=== PATIENT | female | born 1990 | race Caucasian/White ===

== ENCOUNTER 2022-05-27 11:55 | Outpatient (CLI) | payer OTHER, SELFPAY ==
--- NOTE | 2022-05-27 12:15 | CRLHL7_ITS ---
For Patients: As a result of the Century Cures Act, medical imaging exams and procedure reports are released immediately into your electronic medical record. You may view this report before your referring provider. If you have questions, please contact your health care provider. INDICATION: First trimester scan, establish dates. COMPARISON: None. TECHNIQUE: Real-time stephens-scale imaging of the pelvis was performed. FINDINGS: Sonographic imaging demonstrates a single living intrauterine gestation. The embryo demonstrates a regular cardiac rate measuring 163 beats per minute. The embryo`s crown-rump length measurement of 1.1 cm corresponds to a gestational age of 7 weeks 1 day with a sonographic due date of 01/12/2023. There is a normal-appearing yolk sac. There are no gross abnormalities noted within the embryo at this early state of development. The gestational sac has a normal appearance. There is no evidence of a perigestational hemorrhage. The amount of fluid within the sac appears appropriate for gestational age. The cervix is closed. The myometrium appears normal. The ovaries are of normal size. Corpus luteal cyst right ovary. There are no suspicious fluid collections noted in the cul-de-sac. IMPRESSION: Normal first trimester OB ultrasound exam. Gestational age calculated at 7 weeks 1 day with a sonographic due date of 01/12/2023. Dictated by Kd Israel MD @ 05/27/2022 12:49:16 PM (Electronically Signed)
== END 2022-05-27 11:56 | disposition home or self-care (01) ==
LOC: US 11:56
PROVIDERS: Visit Provider Advanced Practice Midwife
DX: Z34.91 Encounter for supervision of normal pregnancy, unspecified, first trimester (principal); Z3A.01 Less than 8 weeks gestation of pregnancy
CPT/HCPCS: 76817; 86592; 86703; 86762; 86787; 86803; 86850; 86900; 86901; 87086; 87340

== ENCOUNTER 2022-08-22 13:56 | Outpatient (CLI) | payer OTHER, SELFPAY ==
--- NOTE | 2022-08-22 14:00 | CRLHL7_ITS ---
For Patients: As a result of the Century Cures Act, medical imaging exams and procedure reports are released immediately into your electronic medical record. You may view this report before your referring provider. If you have questions, please contact your health care provider. INDICATION: Evaluate anatomy. COMPARISON: 05/27/2022 TECHNIQUE: Real time stephens scale imaging of the fetus was performed as well as color Doppler analysis of the umbilical vessels. FINDINGS: Sonographic imaging demonstrates a single living intrauterine gestation. Fetus demonstrates a regular cardiac rate of 152 beats per minute. Fetus has a variable position. The placenta lies posteriorly without evidence of placenta previa. The edge of the placenta is located 4.8 cm from the internal cervical os. Amniotic fluid volume appears normal. Single deepest vertical pocket: 3.0 cm. The cervix is closed and measures 3.4 cm in length. The composite ultrasound gestational age is calculated at 19 weeks 6 days with an estimated sonographic due date of 01/10/2023. The estimated weight is 318 grams which lies at the 64th %. The following biometric measurements were obtained: Biparietal diameter: 4.5 cm/19 weeks 5 days 55th% Head circumference: 17.0 cm/19 weeks 4 days 43rd% Abdominal circumference: 14.8 cm/20 weeks 0 days 61st% Femur length: 3.2 cm/19 weeks 6 days 50th% The HC/AC ratio measures: 1.15 range (1.08-1.26) On anatomic survey, there is a normal appearance of the cerebral ventricles, cavum septi pellucidi, cisterna magna and cerebellum. The nose, lips, and facial profile appear normal. The cervical, thoracic and lumbar spine are well visualized and appear normal. There is a normal four-chamber heart view and the left and right ventricular outflow tracts appear normal. The diaphragm and stomach appear normal. The kidneys and bladder also appear normal. There is a normal three-vessel cord and cord insertion site. The four extremities appear normal. IMPRESSION: Normal OB ultrasound exam with concordance of clinical and sonographic dating. No intrinsic abnormalities noted on anatomic survey. Dictated by Kd Israel MD @ 08/23/2022 2:58:29 PM (Electronically Signed)
== END 2022-08-22 13:57 | disposition home or self-care (01) ==
LOC: US 13:56
PROVIDERS: Visit Provider Obstetrics & Gynecology
DX: Z34.92 Encounter for supervision of normal pregnancy, unspecified, second trimester (principal); Z3A.19 19 weeks gestation of pregnancy
CPT/HCPCS: 76805

== ENCOUNTER 2022-10-17 09:45 | Outpatient (CLI) | payer OTHER, SELFPAY | END 2022-10-17 09:46 | disposition home or self-care (01) | PROVIDERS: Visit Provider Obstetrics & Gynecology | DX: Z34.92 Encounter for supervision of normal pregnancy, unspecified, second trimester (principal); Z3A.27 27 weeks gestation of pregnancy | CPT/HCPCS: 86592 ==

== ENCOUNTER 2022-12-15 10:21 | Outpatient (CLI) | payer OTHER, SELFPAY ==
[2022-12-16 13:47] LABS: Strep B DNA Probe POSITIVE (Negative)
[2022-12-16 13:50] LABS: Strep B Pen/Amox Allergy No
== END 2022-12-15 10:22 | disposition home or self-care (01) ==
LOC: NFLDREF 10:58
PROVIDERS: Visit Provider Obstetrics & Gynecology
DX: Z34.93 Encounter for supervision of normal pregnancy, unspecified, third trimester (principal); Z3A.36 36 weeks gestation of pregnancy
CPT/HCPCS: 87081; 87653

== ENCOUNTER 2023-01-05 16:04 | Inpatient (IN) | payer OTHER, SELFPAY ==
[2023-01-05 16:17] VITALS: BP 108/72; PULSE 117; TEMP 36.8
[2023-01-05 16:20] VITALS: BMI 29.6
--- NOTE | 2023-01-05 18:54 | P.LDBA_ITS ---
Subjective History of Present Illness Time Seen by Provider: 18:54 Date Seen: 01/05/23 Narrative: Patient is being admitted to Labor and Delivery for elective IOL. She is a 32 year old at 39w0d gestation. Her full history and physical was dictated by myself earlier today at her clinic visit. Please see this for details. She reports that she has a lingering cough from a cold a few weeks ago. She feels well but notes it gets worse at night. She wanted to mention this as she's afraid her coughing will expel the cook cath. Reassured patient that if cook cath is unable to stay in place due to cough or any other kind of Valsalva, we have the option of cervical ripening with misoprostol as well. Not interval changes since this morning. Active movement. Denies LOF, vaginal bleeding or abnormal vaginal discharge. Minimal contractions. Specific Issues/Plans [id number] Gopi 1. Hx of anxiety Not on medication at this time (zoloft previously well tolerated). Worsening anxiety noted on 11/14, tolerable. Declines talk therapy or medication need at this time. Will reach out with worsening symptoms. 2. Hx of jaundice with both previous children (ABO incompatibility), requiring hospitalization of each for one week followed by daily monitoring Likely to recur Dr. Mcfarland recommends early bilirubin check and early phototherapy 3. Anemia, with Hb 10.9 at 34 weeks. Iron supplementation QOD. 4. Considering salpingectomy. Private insurance. - to get vasectomy - Will only do salpingectomy if CD - confirmed on admission to L&D 5. GBS positive. No antibiotic allergies. Ampicillin in labor. Tdap: Given, 10/31/22 Flu: 12/15/[address] Joseph on 01/05/2023 OB - Problem Based A/P Additional Plan (1) : Status: Acute (2) Anxiety: Problem details: not on medication at this time Status: Acute (3) Anemia affecting : Status: Acute Plan Induction * Will admit due to scheduled elective induction of labor * Cervical ripening with cook cath: Placed at 1815 without complications * Plan for titrating Pitocin at 0000 on 01/06 * Ampicillin for GBS + when starting Pitocin * Pain management plan: debating between * control: If delivery, then desires salpingectomy. If vaginal delivery: vasectomy OB Exam Physical Exam Vital signs: Temp Pulse BP 98.2 F 117 H 108/72 01/05/23 16:17 01/05/23 16:17 01/05/23 16:17 Narrative: Physical exam: General: No acute distress Psych: Alert and oriented x3, full affect HEENT: Normocephalic, atraumatic Lungs: Unlabored breathing Neuro: No focal deficit. Mentating appropriately Pelvic exam: 0.5/50/-3, moderately soft, midposition
[2023-01-05 19:21] VITALS: BP 114/69; PULSE 97
[2023-01-05] MEDS: guaiFENesin 100 MG/ML CUP PO (21:26)
[2023-01-05] MEDS: hydrOXYzine pamoate 25 MG CAPSULE 100 MG PO (23:47)
[2023-01-05] MEDS: MORPHINE 10 MG/ML inj IM (23:47)
[2023-01-05] MEDS: LACTATED RINGERS 1000 ML 1,000 ML 125 ML IV (23:48)
[2023-01-05] MEDS: OXYTOCIN 30 unit/500 ML in NS 30 UNIT/500 ML BAG IVPB (23:49)
[2023-01-06] VITALS (77 sets, daily range): BP systolic 92–140; BP diastolic 50–81; PULSE 60–131; RESP 16; TEMP 36.6–36.9; O2SAT 92–98
[2023-01-06] MEDS: AMPICILLIN 2 GM in 0.9 % SODIUM CHLORIDE Mini-bag 100 ML IVPB (01:02)
[2023-01-06] MEDS: guaiFENesin 100 MG/ML CUP PO ×5 (03:10→22:13)
[2023-01-06] MEDS: AMPICILLIN 1 GM in 0.9 % SODIUM CHLORIDE Mini-bag 100 ML IVPB ×4 (05:30→17:03)
--- NOTE | 2023-01-06 08:59 | PM.OBPNL ---
Subjective Time Seen by Provider: 10:00 Date Seen: 01/06/23 Narrative: Ms. Marinelli is a 32yo admitted for elective IOL. course complicated by gestational anemia, history of anxiety and ABO incompatibility with previous admissions for hyperbilirubinemia. Induction progress has included cook catheter and pitocin. She is s/p her second dose of ampicillin for GBS positive status. Marquita is feeling well this morning. Notes mild discomfort with contractions. No vaginal bleeding or leaking of fluids. Endorses active movement. Objective Exam: EXAM: Vital Signs: as above Abdomen: Gravid. Non-tender. Cervix: 3/50/-2, head well applied to cervix NST: Baseline 135bpm, moderate variability, accelerations present and decelerations absent Experiment: Contractions q4m Pitocin: 10mu/min Vital Signs: Last Vital Signs Temp 98.3 F 01/06/23 07:30 Pulse 111 H 01/06/23 08:30 BP 131/67 01/06/23 08:30 Plan Plan: Ms. Marinelli is a 32yo seen on Labor and Delivery ongoing elective IOL. ANC history of anxiety, gestational anemia and history of ABO incompatibility requiring admission for hyperbilirubinemia. Labor progress has included cook catheter and pitocin. She is now s/p second dose of ampicillin for GBS positivity. Cervix is now 3/50/-2, with head well applied to cervix. Discussed option for continued pitocin titration via FHR and toco data versus amniotomy. She notes rapid change/delivery following AROM in her last delivery, where she favors proceeding. Plan to proceed with epidural placement first per patient preference. Risks of amniotomy including increased pain, FHR changes, infection and cord prolapse reviewed - verbal consent obtained. Plan to return to bedside once she is comfortable with epidural in place for repeat exam and AROM. - Labor management plan as above. - BT O+ - GBS positive, now adequately treated with ampicillin
[2023-01-06] MEDS: LACTATED RINGERS 1000 ML 1,000 ML 125 ML IV ×3 (09:43→18:43)
[2023-01-06] MEDS: ROPIVACAINE 0.2% 100 ml 100 ML 12 MG EPIDURAL ×2 (10:52→18:58)
[2023-01-06] MEDS: LIDOCAINE 2% (PF) 5 ML VIAL EPIDURAL ×2 (10:52→20:30)
[2023-01-06] MEDS: fentaNYL 100 MCG/2 ML inj EPIDURAL (10:55)
--- NOTE | 2023-01-06 11:06 | P.ANBPRC_ITS ---
[facility] Medical History Hx of vaginal delivery Broken nose ?S02.2XXA - Fracture of nasal bones, initial encounter for closed fracture (ICD-10) Surgical History Salix teeth extracted ?K08.409 - Partial loss of teeth, unspecified cause, unspecified class (ICD- 10) Family History Father Asthma Social History Narrative: SOCIAL?? Education: Bachelors?? Work: teach online ?? Partner: Gopi?? Lives with: and two children (3 and 2)?? Pets: 4 dogs, labs?? Abuse: Denies past/present?? Special Diet: Denies?? Ok with a blood transfusion: yes?? Culture or jainism beliefs: denies?? What is your current living situation?: I presently have a place to live Problems where you live: no known problems In the past 12 months, utilities in danger of being shut off: no In past 12 months, lack of transportation kept you from medical appts, meetings, work, or getting things needed for daily living: no In the past 12 mos, have been you worried that your food would run out before you had money to buy more?: never true In the past 12 mos, the food you bought just didn't last and you didn't have money to buy more?: never true Smoking Status: Never smoker How often does anyone, including family, friends and others, physically hurt you : never How often does anyone, including family, friends and others, insult or talk down to you: never How often does anyone, including family, friends and others, threaten you with harm: never How often does anyone, including family, friends and others, scream or curse at you: never Little interest or pleasure in doing things: not at all Feeling down, depressed, or hopeless: several days Meds Home Medications and Allergies Home Medications Medication Instructions Recorded Confirmed Type docosahexaenoic acid 200 mg 200 mg PO DAILY 05/27/22 01/05/23 History capsule ( DHA) Allergies Allergy/AdvReac Type Severity Reaction Status Date / Time No Known Drug Allergies Allergy Verified 01/05/23 16:18 Results Vital Signs Vital Signs: Last Vital Signs Temp 98.3 F 01/06/23 07:30 Pulse 103 H 01/06/23 11:05 BP 107/56 L 01/06/23 11:05 Pulse Ox 96 01/06/23 11:03 Weight: 75.841 kg Height: 160.02 cm Anesthesia Procedures Epidural Insertion Patient Location: OB Start Time: 10:35 Stop Time: 11:05 Start Date: 01/06/23 Stop Date: 01/06/23 Reason for Block: procedure for pain Patient Position: sitting Performed By: Darien Gonzalez Preanesthetic Checklist: IV checked, risks and benefits discussed, monitors and equipment checked, pre-op evaluation, timeout performed and anesthesia consent Prep: chlorhexidine gluconate Monitoring: blood pressure monitoring, continuous pulse oximetry and heart rate Approach: midline Vertebral Space: lumbar (1-5) Epidural Technique: SIDNEY saline Needle Type: Tuohy needle Injection Technique: continuous catheter Needle gauge: 17 Needle Length (cm): 10 cm Needle Insertion Depth (cm): 6 Catheter Gauge: 19 Catheter Type: multi-orifice Catheter at skin depth (cm): 12 Test Dose Result: negative and lidocaine 1.5% with epinephrine 1 to 200,000
[2023-01-06 13:46] LABS: Basophils Absolute Auto 0.02 K/uL (0.00-0.30); Basophils Percent Auto 0.2 % (0.0-3.0); Eosinophils Absolute Auto 0.14 K/uL (0.00-0.50); Eosinophils Percent Auto 1.4 % (0.0-7.0); Hematocrit 36.5 % (33.0-51.0); Hemoglobin* 11.8 gm/dL (12.0-16.0); Immature Granulocytes Pct Auto 2.9 %; Lymphocytes Absolute Auto 2.29 K/uL (0.90-2.90); Lymphocytes Percent Auto 22.4 % (20-44); Mean Corpuscular HGB Conc 32 gm/dL (32-36); Mean Corpuscular Hemoglobin 31 pg (26-34); Mean Corpuscular Volume 96 fL (80-100); Neutrophils Absolute Auto 6.64 K/uL (1.7-7.0); Neutrophils Percent Auto 65.1 % (42.0-72.0); Platelet Count* 224 K/uL (140-440); RDW Coefficient of Variation % 13.7 % (11.5-15.5); Red Blood Count 3.81 m/uL (4.00-5.20); White Blood Count* 10.21 K/uL (4.50-11.00)
[2023-01-06 13:48] LABS: Slide Review Reflex No
--- NOTE | 2023-01-06 13:59 | PM.OBPNL ---
Subjective Time Seen by Provider: 13:15 Date Seen: 01/06/23 Narrative: Delayed documentation due to patient care - I presented to the bedside at 1324, following Code White notification at 1323. On arrival to the bedside, FHR was noted to be in the 60s-90s with FSE in place per beside RN. Patient was in hands and knees position, pitocin turned off and IVF bolus running. Cervix was noted to be unchanged by bedside RN. biodiesel plant operations engineer notified me of medication error, where pitocin had erroneously been running at a rate of 200mL/hr rather than her ampicillin. 74mL had been infused at rate of 200mL/hr, so this rate had been ongoing for approximately 20 minutes. Prior to medication error, pitocin had been running at 10mu/min with category 1 FHR tracing. Pitocin was confirmed to be off. I immediately called for terbutaline to be administered, meanwhile FHR was noted to improve to the 100-110bpm at 1326. resuscitative efforts continued while terbutaline was drawn up and ultimately administered at 1328. FHR had an undulating pattern with recurrent late decelerations during this time, with minimal variability - where it would improve to the 110s, then decrease to 80s, increase to 120s, then decrease to 90s, increase to 130s, decrease to 100s and ultimately stabilized to the 140s by 1329. Code white was cancelled, however close maternal and monitoring continued. I explained the medication error and Code White to Ms. Marinelli, where high dose pitocin incited tachysystole with heart rate changes as the nidus for this prolonged deceleration. I reviewed the FHR tracing and time course in detail with Marquita and her . I explained that baby recovered appropriately with resuscitative efforts and terbutaline, thus emergency delivery was no longer necessary. Reassured Marquita and her that baby now has a category 1 FHR tracing with baseline of 140bpm, moderate variability, accelerations present and decelerations absent. Explained that the presence of accelerations assures us that pH is >=7.2. Recommend period of ongoing expectant management with diligent FHR monitoring for 1 hour. If condition remains category 1, plan would be to resume pitocin at 2mu/min and increase 2mu/min every 30 minutes pending FHR and toco data. I am hopeful that we will be able to continue IOL as planned, given known etiology behind the prolonged deceleration (tachysystole secondary to med error.) I explained indications for urgent delivery would be another prolonged deceleration or persistent category 2 FHR tracing despite resuscitative efforts, in addition to standard Ob indications. Marquita and her express understanding and are agreeable to plan. All questions answered. Objective Vital Signs: Last Vital Signs Temp 98.3 F 01/06/23 07:30 Pulse 60 01/06/23 13:47 BP 140/64 H 01/06/23 13:47 Pulse Ox 96 01/06/23 11:03
--- NOTE | 2023-01-06 20:26 | PM.OBPNL ---
Subjective Time Seen by Provider: 20:15 Date Seen: 01/06/23 Narrative: Ms. Marinelli is a 32yo at 39w1d GA ongoing elective IOL. course complicated by gestational anemia, history of anxiety and ABO incompatibility with previous admissions for hyperbilirubinemia. In to assess in the setting of recurrent variable decelerations. Patient is noting increased pain in the left upper abdomen near the uterine fundus. Endorses ongoing loss of fluid, no vaginal bleeding. She additionally has more pelvic pressure and has noticed increased mobility of her legs. Objective Exam: Cervix is now 5/70/-2 FHR: Baseline of 145bpm, moderate variability, recurrent variable decelerations with rapid recovery to baseline. Last acceleration at 1955. [place]: regular contractions about q3 minutes Vital Signs: Last Vital Signs Temp 98.4 F 01/06/23 19:15 Pulse 96 01/06/23 20:16 Resp 16 01/06/23 19:15 BP 101/56 L 01/06/23 20:16 Pulse Ox 96 01/06/23 11:03 Plan Plan: Ms. Marinelli is a 32yo ongoing elective IOL. ANC complicated by gestational anemia, history of anxiety and ABO incompatibility with previous admissions for hyperbilirubinemia. Cervix is now 5/70/-2, where head now feels most central in the pelvis (vs suspected OP positioning prior). Recurrent variable decelerations resolved with maternal repositioning and reduction of pitocin by 50%. Anesthesia contacted regarding worsening abdominal pain, en route to re-evaluate her epidural coverage. Continue diligent maternal comfort cares and FHR monitoring. She has a history of rapid change and delivery after achieving active labor in her last - hopeful for ongoing progress as we approach active labor. Anticipate next exam as clinically indicated.
--- NOTE | 2023-01-06 22:12 | W.PM.VAGDEL1 ---
Procedure Delivery date: 01/06/23 Procedure Done: Global Events: Labor Induction Delivery augmentation: rupture of membranes Delivery monitor: internal FHT Route of delivery: vacuum extraction Indication for instrumentation: nonreassuring FHR tracing Episiotomy description: None Laceration description: Vaginal - 1st Degree Delivery repair: Vicryl Estimated blood loss (mL): 150 Anesthesia type: Epidural Disposition: floor Complications: Persistent category 2 FHR tracing despite pitocin discontinuation and resuscitative efforts (IVF, maternal repositioning) requiring expedited delivery via vacuum assistance Narrative: Ms. Marinelli is a 32yo admitted for elective IOL. course complicated by gestational anemia, history of anxiety and ABO incompatibility. heart tones on admission were category 1. Her induction was started with cook catheter, augmented with pitocin. AROM was performed at 1142 with return of clear fluids. Intrapartum course was complicated by a prolonged FHR deceleration in the setting of medication error (excess pitocin administration) resulting in uterine tachysystole. This deceleration did resolve with terbutaline, maternal repositioning and IVF bolus. Please see my prior notes for complete details. Outside of this episode, FHR was primary category 1. She entered active labor at 2014 (cervix 5/70/-1) and made rapid cervical change to complete by 2115. FHR in active labor was notable for recurrent variable decelerations, rapid recovery was noted to a normal baseline with moderate variability. I explained the likely etiology of cord compression behind these FHR changes, were resuscitative efforts continued. She was complete at 2115 and expulsive efforts were initiated at 2118. Pediatrics team was requested to present for delivery in the setting of persistent category 2 FHR tracing. She made excellent descent across several expulsive efforts, from +1 to +3 station. At 2124 she had a deep variable deceleration to the 50s with slower recovery, followed by marked variability. Recommendation was made to proceed with expedited delivery via operative vaginal delivery with the vacuum. Risks were reviewed, including bruising, cephalohematoma, subgaleal or intra-cranial bleeding, scalp laceration, higher order maternal vaginal laceration and shoulder dystocia. Marquita expressed understanding and provided verbal consent. She was placed in lithotomy position with the assistance of bedside RNs. Bladder was previously emptied, given No catheter removal a few minutes prior. Sterile vaginal exam confirmed 10/100/+3 station, DAVIN position with mild caput and no moulding. Maternal pelvis was adequate. Anesthesia was adequate. EFW was approximately 3400g by prior Kalia's exam. FSE was removed and external FHR monitoring was initiated. Kiwi vacuum was applied at the flexion point - midline on the sagittal suture about 2cm anterior to the posterior fontanelle. Digital exam confirmed no vaginal tissue was present. Vacuum application time was 8. With the next maternal contraction, gentle traction was applied alongside maternal pushing efforts. Excellent descent was noted with subsequent delivery of the vertex across one pushing effort. Vacuum was removed, no pop offs occurred. Tight nuchal cord was noted, where fetus was delivered via somersault maneuver at 2130. Nuchal cord was reduced at the perineum and fetus brought to maternal abdomen. Good tone and respiratory effort was noted, where delayed cord clamping was continued for 30-60 seconds. APGARs were 8 and 9 at 1 and 5 minutes respectively. Cord gas sent for analysis in the setting of persistent category 2 tracing and operative vaginal delivery. The perineum was inspected, where first degree laceration was noted. I suspect this was along her former scar, as no bleeding was noted. Repair was completed under existing epidural anesthesia with 3-0 Vicryl. A single [id number] suture was applied to approximate the vaginal tissue, while another interrupted subcuticular suture was applied to reapproximate the skin of the perineum. Excellent uterine tone was noted on bimanual exam. Total EBL was noted to be 150cc in the drape. Both mother and baby were noted to be in stable condition at the conclusion of delivery, skin to skin ongoing. Debrief was performed with Marquita and her , to ensure understanding of her labor course and vacuum-assisted delivery. They expressed understanding and had no additional questions. [place] Infant Infant Gender: Male presentation: vertex Placental Delivery Description: Spontaneous Cord Description: 3 Vessels, Nuchal Cord and Tight OB Vag Delivery Procedures Additional Procedures Cook Catheter Insertion: Yes Laceration Repair: Yes
[2023-01-06] MEDS: IBUPROFEN 600 MG TABLET PO (22:15)
[2023-01-06 22:35] LABS: Aspartate Amino Transferase* 59 U/L (12-35); Creatinine* 0.5 mg/dL (0.5-1.5); Est. Creatinine Clearance* 136.09; Estimated Glomerular Filt Rate 129 ml/min
[2023-01-06 22:36] LABS: Alanine Aminotransferase* 21 U/L (4-35); Blood Urea Nitrogen* 6 mg/dL (5-24)
[2023-01-06 22:56] LABS: Hematocrit 35.3 % (33.0-51.0); Hemoglobin* 11.6 gm/dL (12.0-16.0); Mean Corpuscular HGB Conc 33 gm/dL (32-36); Mean Corpuscular Hemoglobin 32 pg (26-34); Mean Corpuscular Volume 96 fL (80-100); Platelet Count* 215 K/uL (140-440); Red Blood Count 3.68 m/uL (4.00-5.20)
[2023-01-06 22:58] LABS: Slide Review Reflex No
[2023-01-07] MEDS: ACETAMINOPHEN 500 MG TABLET 1000 MG PO ×4 (00:45→20:24)
[2023-01-07 03:22] VITALS: BP 122/77; PULSE 88; RESP 16; TEMP 36.6; O2SAT 96
[2023-01-07] MEDS: guaiFENesin 100 MG/ML CUP PO ×4 (03:32→20:10)
[2023-01-07] MEDS: IBUPROFEN 600 MG TABLET PO ×3 (05:52→20:25)
[2023-01-07 07:14] LABS: Hemoglobin* 11.3 gm/dL (12.0-16.0)
--- NOTE | 2023-01-07 07:55 | P.OBPN_ITS ---
OB - PN:Subj Subjective Date Seen: 01/07/23 Patient comments OB post-: no complaints, pain well controlled, tolerating diet and flatus present [place] status: and doing well [place] feeding status: exclusively Narrative: Complications:? vacuum assisted delivery? The patient feels tired and sore but otherwise doing good.? The pain is well controlled with current medications.?She is having cramping with . She has no new complaints.? Urinary output is adequate and she is voiding without difficulty.? Has a good appetite, is tolerating a general diet, is passing flatus, and has not had a bowel movement.? Has small amount of rubra lochia.? She is ambulating well.?She is concerned about baby having jaundice and having a long hospitalization as her other children have both been hospitalized for about 5 days. She had questions about why there are concerns for Pre- eclampsia. We discussed that labs were drawn based on one elevated pressure that was taken when she was shaking . She has an elevated AST. Discussed that if her BP are elevated that we would consider redrawing labs and did encourage her to consider staying tonight even if by some chance baby was discharged. Agreeable to this plan. OB - PN: Obj Exam Physical Exam: Vital signs: Temp Pulse Resp BP Pulse Ox O2 Del Method 97.8 F 88 16 122/77 96 Room Air 01/07/23 03:22 01/07/23 03:22 01/07/23 03:22 01/07/23 03:22 01/07/23 03:22 01/07/23 03:22 Narrative: GENERAL APPEARANCE:? normal affect, alert, no distress? MOOD:? appropriate? CHEST:? clear to auscultation and percussion? HEART:? regular rate and rhythm? ABDOMEN:? soft, non-tender the uterine fundus is U/2 and is appropriate for the stage of recovery.? PERINEUM:? mild edema of the perineum, there is a 1st degree that is healing well.? EXTREMITIES:? normal and no edema? OB - PN: Obj Data Labs Labs: Laboratory Results - last 24 hr 01/06/23 01/06/23 01/07/23 13:36 22:16 06:58 WBC 10.21 14.80 H RBC 3.81 L 3.68 L Hgb 11.8 L 11.6 L 11.3 L Hct 36.5 35.3 MCV 96 96 MCH 31 32 MCHC 32 33 RDW Coeff of Carrillo 13.7 Plt Count 224 215 Neut % (Auto) 65.1 Lymph % (Auto) 22.4 [place] % (Auto) 8.0 Eos % (Auto) 1.4 Baso % (Auto) 0.2 Neut # (Auto) 6.64 Lymph # (Auto) 2.29 [place] # (Auto) 0.80 Eos # (Auto) 0.14 Baso # (Auto) 0.02 Abs Immat Gran (auto) 0.30 Imm/Tot Granulo (auto) 2.9 BUN 6 Creatinine 0.5 Estimated Creat Clear 136.09 Estimated GFR 129 AST 59 H ALT 21 Blood Type O Positive Antibody Screen NEGATIVE OB - PN: A/P Delivery Assessment and Plan (1) Anxiety: Problem details: not on medication at this time Status: Acute (2) Lactating mother: Status: Acute (3) care following vaginal delivery: Status: Acute Plan day: 1 Plan: routine care Comments: 35 year old on day 1.? 1. Routine cares.? 2. Anticipate discharge tomorrow.? 3. Consider repeat labs if her blood pressures are elevated.
[2023-01-07 08:15] VITALS: BP 125/83; PULSE 88; RESP 18; TEMP 37; O2SAT 97
[2023-01-07] MEDS: DOCUSATE SODIUM 100 MG CAPSULE PO (08:22)
[2023-01-07 12:00] VITALS: BP 116/79; PULSE 95; RESP 18; TEMP 36.7; O2SAT 96
[2023-01-07 16:30] VITALS: BP 106/68; PULSE 69; RESP 16; TEMP 36.6; O2SAT 97
[2023-01-07 20:00] VITALS: BP 126/69; PULSE 69; RESP 16; TEMP 36.7; O2SAT 97
[2023-01-08] MEDS: guaiFENesin 100 MG/ML CUP PO ×2 (03:15→10:00)
[2023-01-08] MEDS: ACETAMINOPHEN 500 MG TABLET 1000 MG PO ×2 (04:15→10:02)
[2023-01-08] MEDS: IBUPROFEN 600 MG TABLET PO ×2 (04:15→10:00)
--- NOTE | 2023-01-08 07:42 | P.DS_ITS ---
DS: Providers Provider Date Seen: 01/08/23 Date of admission: 01/05/23 16:04 Primary care physician: Not a Local Provider Admitting Clinician: Elvia Joseph MD Attending Physician on discharge: Rossy Sinha APRN, CNM DS: Diagnosis Discharge Diagnosis (1) care following vaginal delivery: Status: Acute (2) Lactating mother: Status: Acute (3) Maternal AST (aspartate aminotransferase) elevation: Status: Acute Problem details: AST 59, Per Dr. Morley, no repeat needed without any additional symptoms. (4) Elevated BP without diagnosis of hypertension: Status: Acute Exam Narrative: Exam Narrative: GENERAL APPEARANCE:? normal affect, alert, no distress MOOD:? appropriate CHEST:? clear to auscultation HEART:? regular rate and rhythm ABDOMEN:? soft, non-tender the uterine fundus is at Umbilicus, Midline and is appropriate for the stage of recovery. PERINEUM:? mild edema of the perineum, there is a vaginal laceration,?1st degree that is healing well. EXTREMITIES:? normal and no edema Const: Vital Signs, click to edit/add: Vital Signs - 24 hr 01/07/23 08:15 01/07/23 12:00 01/07/23 16:30 Temperature 98.6 F 98.1 F 97.9 F Pulse Rate [Pulse Oximeter] 88 95 69 Respiratory Rate 18 18 16 Blood Pressure [Le ft Arm] 125/83 116/79 106/68 Pulse Oximetry 97 96 97 Oxygen Delivery Me thod Room Air Room Air Room Air 01/07/23 20:00 Temperature 98.1 F Pulse Rate [Pulse Oximeter] 69 Respiratory Rate 16 Blood Pressure [Le ft Arm] 126/69 Pulse Oximetry 97 Oxygen Delivery Me thod Room Air OB - DS: Summary Hospital Course Hospital Course: Marquita is a 32 y.o. G 3 P 2 who was admitted to [facility] for elective IOL. ?She had a VAVD due to intolerance with pushing. Delivery was uncomplicated. T he patient feels well. ?She had one elevated BP after delivery, labs were obtained and mildly elevated AST of 59 noted. All other labs WNL. No additional elevated BP's since delivery. Does not meet criteria for hypertension at this time. Consulted with Dr. Morley, Dr Joseph was also present, and neither recommended repeating unless she was having additional symptoms. The pain is well controlled with current medications. ?She has no new complaints. She continues to have a mild cold/cough. Using cough medicine as needed. ?She is breast feeding and reports things are going well. the patient has done well.? Vitals have been stable.? She has remained afebrile.? Has a good appetite, is tolerating a general diet. ?She is voiding without difficulty.? She is passing gas and has had a bowel movement.? She is ambulating and denies any dizziness.? Has small amount of rubra lochia. Problems: non plan: Discharge to house guest status/home. [place] is currently under bili lights with plan to d/c when labs are stable. Follow up in 2 weeks and 6 weeks. , may see if needed Hgb 11.3. Elevated BP x1, labs drawn out of caution per . AST 59, all others WNL. No indication for repeating labs per Dr. Morley Peripartum Data Infant delivery method: Vacuum Laceration description: Vaginal - 1st Degree complications: none Infant Gender: Male Discharge Plan: Home (Currently on Bili lights. Will d/c when labs are stable.) Status at Discharge Functional status at discharge: independent ambulation Overall status at discharge: patient is progressing back to baseline Time Spent with Patient Time attestation: Total time spent providing and/or coordinating discharge services: Discharge Plan Discharge Disposition: Home, Self-Care Date of Admission: 01/05/23 16:04 Attending Provider on Discharge: Rossy Sinha Primary Care Provider: Provider,Not a Local Condition: Stable Anticipated Discharge Date/Time: 01/08/23 12:00 Discharge Medications: New acetaminophen 500 mg Tablet 1,000 mg PO Q6H PRNQty: 0 0RF docusate sodium 100 mg Capsule 100 mg PO DAILY Qty: 0 0RF ibuprofen 600 mg Tablet 600 mg PO Q6H PRNQty: 60 0RF Continued DHA 200 mg capsule 200 mg PO DAILY ferrous sulfate 134 mg (27 mg iron) tablet 134 mg PO QMWF Qty: 30 2RF Discharge Orders: Discharge Order (Routine); Ordered 01/08/23 Ordered By: Rossy Sinha Patient Education: OB Over the Counter Medication Information, OB Vaginal/Breast Feeding Additional Instructions: Discharge instructions were reviewed with the patient including signs and symptoms of infection and home going medications Nothing vaginally for 6 weeks: no tampons or intercourse Off Work or School for 6 weeks 2-week visit: discuss infant feeding concerns, review control options and screen for anxiety/depression. 6-week visit for an annual exam. consultation services are available to all mothers and babies for the first year after delivery.? To make an appointment, please call [phone]. Activity Level: Activity as Tolerated Discharge Diet: Regular Follow Up Appointments: [facility] [Provider Group] Forms: [facility] Info Instructions
[2023-01-08 08:00] VITALS: BP 128/88; PULSE 76; RESP 16; O2SAT 98
[2023-01-08 15:35] VITALS: BP 115/86; PULSE 70; RESP 16; TEMP 36.7; O2SAT 98
== END 2023-01-08 23:25 | disposition home or self-care (01) | DRG 807 ==
PROVIDERS: Admitting Provider Obstetrics & Gynecology; Visit Provider Obstetrics & Gynecology
DX: O99.824 Streptococcus B carrier state complicating childbirth (principal); Z37.0 Single live birth; O76 Abnormality in fetal heart rate and rhythm complicating labor and delivery; O62.4 Hypertonic, incoordinate, and prolonged uterine contractions; O9A.22 Injury, poisoning and certain other consequences of external causes complicating childbirth; T48.0X1A Poisoning by oxytocic drugs, accidental (unintentional), initial encounter; Y92.230 Patient room in hospital as the place of occurrence of the external cause; R74.01 Elevation of levels of liver transaminase levels; R03.0 Elevated blood-pressure reading, without diagnosis of hypertension; O70.0 First degree perineal laceration during delivery; O99.344 Other mental disorders complicating childbirth; F41.9 Anxiety disorder, unspecified; O99.02 Anemia complicating childbirth; D64.9 Anemia, unspecified; O99.52 Diseases of the respiratory system complicating childbirth; J00 Acute nasopharyngitis [common cold]; Z3A.39 39 weeks gestation of pregnancy
CPT/HCPCS: 01967; 36415; 59200; 82565; 84450; 84460; 84520; 85018; 85025; 85027; 86850; 86900; 86901; A9270; C1726; J0290; J0330; J2270; J2371; J2704; J2795; J3010; J7120